=== PATIENT | female | born 1985 | race Caucasian/White ===

== ENCOUNTER → 2017-02-27 | Outpatient (CLI) | payer OTHER ==
[~2017-02-27] MED LIST: CIPRO PO; KETOPROFEN PO
--- NOTE | ~2017-02-27 | MR17 ---
[facility] RADIOLOGY TEXT RESULTS PATIENT: JOHN SOLORZANO LOCATION: [facility] : 85 UNIT #: [id number] AGE: [address]: Kenia Rosa MD SEX: F ORDER DR: [id number] [facility] [address] [place], [place] [address] [id number] O MR#: [id number] Acc #: [id number] NAME: JOHN SOLORZANO : 1985 SEX: F STUDY DATE/TIME: 02/27/2017 14:31 UNIT: [facility] ROOM: STUDY DESCRIPTION: MR Brain WWo Contrast Attending Physician: Kenia Rosa M.D. Referring Physician: Kenia Rosa M.D. Ordering Physician: Kenia Rosa M.D. Primary Care Physician: Kenia Rosa M.D. MRI CENTER REPORT This report is preliminary unless electronic signature is present. EXAM MR brain INDICATIONS Feli somnia Smelling loss. Family history of cerebral aneurysm. 1 year of increasing severity of headache. Sinusitis. TECHNIQUE Multiplanar MRI of the brain with and without contrast (20 mL MultiHance IV contrast) COMPARISON None available FINDINGS The midline structures and craniocervical junction are within normal limits. There is no acute intracranial hemorrhage or acute intracranial ischemia. No abnormal enhancing mass or lesion following the administration of contrast. Elizalde-white matter differentiation is normal. The ventricles and basilar cisterns are normal in size and configuration. No extraaxial collections. Soft tissues of the orbit are unremarkable. The paranasal sinuses and mastoid air cells are clear. IMPRESSION Negative MRI of the brain. Dictated by... Prasanna Kong M.D. THIS IS AN ELECTRONICALLY VERIFIED REPORT Prasanna Kong M.D. at 03/02/2017 11:39 AM [facility] RADIOLOGY TEXT RESULTS PATIENT: JOHN SOLORZANO LOCATION: [facility] : 85 UNIT #: [id number] AGE: [address]: Kenia Rosa MD SEX: F ORDER DR: ALEXANDRA/bing TD: 03/01/2017 16:41 JOB #: [id number] MRI CENTER REPORT Page 1 of 1 COPY
[2017-02-27 14:30] LABS: POC - GFR >60.0 mL/min (>60)
== END | disposition home or self-care (01) ==
LOC: CMRI 13:09
PROVIDERS: Internal Medicine Infectious Disease
DX: R43.0 Anosmia (principal)
CPT/HCPCS: 70553; 82565; A9577